=== PATIENT | female | born 1985 | race Caucasian/White ===

== ENCOUNTER 2017-04-10 17:54 | Emergency (ER) | payer MEDICAID ==
[~2017-04-10] VITALS: Ht 152.4 cm; Wt 59.0 kg
[~2017-04-10 17:54] MED LIST: IBUPROFEN 600M600 MG PO; TYLENOL ES500 M1 PO; ULTRAM50 MG PO
--- NOTE | 2017-04-10 18:25 | Emergency Room Report ---
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 N Clinical Suspician of Infection? N Mental Status: 1 - Regular (Normal Baseline) Sepsis Risk:Low Sepsis Risk Have you (or family members/close friends) recently traveled outside the [place]? N If Yes, where/when: Have you had exposure to infectious disease within the past month? TB? Other? Specify: Source patient, RN notes reviewed, RN/MD Exam Limitations no limitations Comment This is a 29-year-old female patient arriving to the emergency room complaining with constipation for the past one month. Patient was placed on Suboxone approximately 2 months ago. Patient denies any fever, nausea, vomiting but has been having some recent cramps. She appears in no acute distress. ALLERGIES Coded Allergies: No Known Allergies (04/10/17) Home Medications Reported Medications BUPRENORPHINE HCL/NALOXONE HCL (Buprenorphin-Naloxon 8-2 MG Sl) 1 TAB SL DAILY #14 BUPRENORPHINE HCL/NALOXONE HCL (Zubsolv 5.7-1.4 MG Tablet Sl) 1 TAB SL DAILY #14 History Medical History General Angina: No [place]: No Hypertension? No Hyperlipidemia? No CHF? No COPD? No Asthma? No Hernia? No CVA? No Seizures? No Diabetes? No UTI? No Stones? No GB Disease: No Hepatitis? No Cataracts? No Glaucoma? No MRSA? No TB? No Cancer? 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 Hx LMP N/A Family History Family Hx Diabetes Yes CAD No Hypertension Yes Hyperlipidemia Yes Cancer Yes TB No Social History Smoking Hx Smoker: Current Every Day Smoker Tobacco: Yes Type Cigarettes Packs/day < 1 Pack Alcohol Alcohol: No Review of Systems All Other Systems Reviewed and Negative Gastrointestinal see HPI, denies abdominal pain, constipation, denies diarrhea, denies nausea, denies vomiting Physical Exam Vital Signs Vital Signs Date Time Temp Pulse Resp B/P Pulse O2 O2 Flow FiO2 Ox Delivery Rate 04/10 1959 98.3 94 16 109/72 99 04/10 1937 94 16 109/72 99 04/10 1757 98.3 70 16 149/72 99 General Appearance normal appearance, WD/WN, no apparent distress Respiratory Status Yes: trachea midline, chest symmetrical, non tender chest. No: respiratory distress. Lung Sounds bilateral: normal breath sounds, lungs clear. 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 No Comment 1944-patient re-examined, she appears in no acute distress, medically stable. She had a bowel movement after using the Fleet enema in the emergency room. We' ll discharge her home with instructions to increase her fiber intake, use of occasional prune juice, and will add stool softeners to her medications as well. Results/Orders Laboratory Tests 04/10/171828: Urine Color YELLOW, Urine Appearance CLOUDY, Urine pH 8.0, Ur Specific [place] 1.020, Urine Protein NEGATIVE, Urine Ketones NEGATIVE, Urine Blood NEGATIVE, Urine Nitrate NEGATIVE, Urine Bilirubin NEGATIVE, Urine Urobilinogen 0.2, Ur Leukocyte Esterase 1+ H, Urine RBC NONE, Urine WBC 10-20, Ur Squamous Epith Cells OCC, Urine Bacteria 4+, Urine Glucose NEGATIVE Current Medication Orders Sig/Zaira Start time Last Medication Dose Route Stop Time Status Admin Sodium Biphosphate/ 0 .STK-MED ONE 04/10 1956 DC Sodium Phosphate [place] Sodium Biphosphate/ 133 ML ONCE ONE 04/10 1945 DC 04/10 Sodium Phosphate [place] 04/10 Bisacodyl 0 .STK-MED ONE 04/10 1905 DC PO Sodium Biphosphate/ 0 .STK-MED ONE 04/10 1904 DC Sodium Phosphate [place] Bisacodyl 10 MG ONCE ONE 04/10 1900 DC 04/10 PO 04/10 Sodium Biphosphate/ 133 ML ONCE ONE 04/100 DC 04/10 Sodium Phosphate [place] 04/10 Orders Procedure Date/time Status URINALYSIS/COMPLETE 04/10 183 Complete CULTURE, URINE 04/10 182 Active URINE 04/10 180 Complete XRAY/CT/US XRAY/CT/US XRAY KUB XR interpretation by reviewed by me, discussed w/radiologist Xray Results increased stool consistent with constipation, otherwise no acute disease Departure Departure Time of Disposition 1939 Disposition DC Home or Self Care(routine) Clinical Impression Primary Impression: Constipation Qualifiers: Constipation type: unspecified constipation type Qualified Code: K59.00 - Constipation, unspecified Condition STABLE Patient Instructions DI for Constipation Additional Instructions Please drink plenty of fluids, increase your fiber content Interior diet, start stool softeners, may use occasional prune juice, follow-up with PCP if not better. Discharge Counseling Counseled pt/family regarding diagnosis, test results, medications/RX, home care, follow up needs Comment Please drink plenty of fluids, increase your fiber content Interior diet, start stool softeners, may use occasional prune juice, follow-up with PCP if not better. Prescriptions Current Visit Scripts Docusate Sodium (Colace 100MG CAP) 100 MG PO BID #30 CAP ED Critical Care Critical Care No at 0941
--- NOTE | 2017-04-10 18:25 | Emergency Room Report ---
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 N Clinical Suspician of Infection? N Mental Status: 1 - Regular (Normal Baseline) Sepsis Risk:Low Sepsis Risk Have you (or family members/close friends) recently traveled outside the [place]? N If Yes, where/when: Have you had exposure to infectious disease within the past month? TB? Other? Specify: Source patient, RN notes reviewed, RN/MD Exam Limitations no limitations Comment This is a 29-year-old female patient arriving to the emergency room complaining with constipation for the past one month. Patient was placed on Suboxone approximately 2 months ago. Patient denies any fever, nausea, vomiting but has been having some recent cramps. She appears in no acute distress. ALLERGIES Coded Allergies: No Known Allergies (04/10/17) Home Medications Reported Medications BUPRENORPHINE HCL/NALOXONE HCL (Buprenorphin-Naloxon 8-2 MG Sl) 1 TAB SL DAILY #14 BUPRENORPHINE HCL/NALOXONE HCL (Zubsolv 5.7-1.4 MG Tablet Sl) 1 TAB SL DAILY #14 History Medical History General Angina: No CT: No Hypertension? No Hyperlipidemia? No CHF? No COPD? No Asthma? No Hernia? No CVA? No Seizures? No Diabetes? No UTI? No Stones? No GB Disease: No Hepatitis? No Cataracts? No Glaucoma? No MRSA? No TB? No Cancer? 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 Hx LMP N/A Family History Family Hx Diabetes Yes CAD No Hypertension Yes Hyperlipidemia Yes Cancer Yes TB No Social History Smoking Hx Smoker: Current Every Day Smoker Tobacco: Yes Type Cigarettes Packs/day < 1 Pack Alcohol Alcohol: No Review of Systems All Other Systems Reviewed and Negative Gastrointestinal see HPI, denies abdominal pain, constipation, denies diarrhea, denies nausea, denies vomiting Physical Exam Vital Signs Vital Signs Date Time Temp Pulse Resp B/P Pulse O2 O2 Flow FiO2 Ox Delivery Rate 04/10 1959 98.3 94 16 109/72 99 04/10 1937 94 16 109/72 99 04/10 1757 98.3 70 16 149/72 99 General Appearance normal appearance, WD/WN, no apparent distress Respiratory Status Yes: trachea midline, chest symmetrical, non tender chest. No: respiratory distress. Lung Sounds bilateral: normal breath sounds, lungs clear. 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 No Comment 1944-patient re-examined, she appears in no acute distress, medically stable. She had a bowel movement after using the Fleet enema in the emergency room. We' ll discharge her home with instructions to increase her fiber intake, use of occasional prune juice, and will add stool softeners to her medications as well. Results/Orders Laboratory Tests 04/10/171828: Urine Color YELLOW, Urine Appearance CLOUDY, Urine pH 8.0, Ur Specific [place] 1.020, Urine Protein NEGATIVE, Urine Ketones NEGATIVE, Urine Blood NEGATIVE, Urine Nitrate NEGATIVE, Urine Bilirubin NEGATIVE, Urine Urobilinogen 0.2, Ur Leukocyte Esterase 1+ H, Urine RBC NONE, Urine WBC 10-20, Ur Squamous Epith Cells OCC, Urine Bacteria 4+, Urine Glucose NEGATIVE Current Medication Orders Sig/Zaira Start time Last Medication Dose Route Stop Time Status Admin Sodium Biphosphate/ 0 .STK-MED ONE 04/10 1956 DC Sodium Phosphate [place] Sodium Biphosphate/ 133 ML ONCE ONE 04/10 1945 DC 04/10 Sodium Phosphate [place] 04/10 Bisacodyl 0 .STK-MED ONE 04/10 1905 DC PO Sodium Biphosphate/ 0 .STK-MED ONE 04/10 1904 DC Sodium Phosphate [place] Bisacodyl 10 MG ONCE ONE 04/10 1900 DC 04/10 PO 04/10 Sodium Biphosphate/ 133 ML ONCE ONE 04/100 DC 04/10 Sodium Phosphate AR 04/10 Orders Procedure Date/time Status URINALYSIS/COMPLETE 04/10 183 Complete CULTURE, URINE 04/10 182 Active URINE 04/10 180 Complete XRAY/CT/US XRAY/CT/US XRAY KUB XR interpretation by reviewed by me, discussed w/radiologist Xray Results increased stool consistent with constipation, otherwise no acute disease Departure Departure Time of Disposition 1939 Disposition DC Home or Self Care(routine) Clinical Impression Primary Impression: Constipation Qualifiers: Constipation type: unspecified constipation type Qualified Code: K59.00 - Constipation, unspecified Condition STABLE Patient Instructions DI for Constipation Additional Instructions Please drink plenty of fluids, increase your fiber content Interior diet, start stool softeners, may use occasional prune juice, follow-up with PCP if not better. Discharge Counseling Counseled pt/family regarding diagnosis, test results, medications/RX, home care, follow up needs Comment Please drink plenty of fluids, increase your fiber content Interior diet, start stool softeners, may use occasional prune juice, follow-up with PCP if not better. Prescriptions Current Visit Scripts Docusate Sodium (Colace 100MG CAP) 100 MG PO BID #30 CAP ED Critical Care Critical Care No at 0941
[2017-04-10] MEDS ORDERED: BUPRENORPHINE H1 TA2 SL (18:26)
[2017-04-10] MEDS ORDERED: ZUBSOLV1 TA1 SL (18:26)
--- OUTSIDE RECORDS SUMMARY | 2017-04-10 18:26 | External Medical Summary Rpt | CCD ---
Author Author , LYNN BAILEY Address Unknown Phone [email or web address] Purpose Continuity of Care Document - through 2016 Problems Code Diagnosis DOS Provider Status F11.10 Opioid abuse, uncomplicat ed F11.220 Opioid dependence with intoxicatio n, uncomplicat ed F11.23 Opioid dependence with withdrawal F19.90 Other psychoactiv e substance use, unspecified , uncomplicat ed L02.91 Cutaneous abscess, unspecified L03.114 Cellulitis of left upper limb R76.8 Other specified abnormal immunologic al findings in serum Z00.00 Encounter for general adult medical examination without abnormal findings
--- OUTSIDE RECORDS SUMMARY | 2017-04-10 18:26 | External Medical Summary Rpt | CCD ---
Author Author , LYNN BAILEY Address Unknown Phone [email or web address] Purpose Continuity of Care Document - through [...]
--- OUTSIDE RECORDS SUMMARY | 2017-04-10 18:27 | External Medical Summary Rpt | CCD ---
Author Author [employer] Organization [employer] Address Unknown Phone Unavailable Purpose Continuity of Care Document - through 2016
--- OUTSIDE RECORDS SUMMARY | 2017-04-10 18:27 | External Medical Summary Rpt | CCD ---
Author Author , LYNN BIALEY Address Unknown Phone [email or web address] Immunization Name Date Rout CVX Reac Dose Comm Prov Is Faci e tion ent ider Refu lity Give sed n Hep 03-3 42 999 Hist H149 No H149 B, 0-19 oric adol 99 al Info High rmat Ris ion - Sour ce Unsp ecif ied Hep 10- 42 999 Hist H149 No H149 B, 2-19 oric adol 98 al Info High rmat Ris ion - Sour ce Unsp ecif ied Hep 09- 42 999 Hist H149 No H149 B, 1-19 oric adol 98 al Info High rmat Ris ion - Sour ce Unsp ecif ied MMR 09-1 3 999 Hist H149 No H149 1-19 oric 98 al Info rmat ion - Sour ce Unsp ecif ied
--- OUTSIDE RECORDS SUMMARY | 2017-04-10 18:27 | External Medical Summary Rpt | CCD ---
Author Author , LYNN BAILEY Address Unknown Phone [email or web address] Immunization Name Date Rout CVX Reac Dose [...]
[2017-04-10 18:37] LABS: URINE BILIRUBIN - DIPSTICK NEGATIVE (NEG); URINE BLOOD NEGATIVE (NEG)
[2017-04-10 18:54] LABS: URINE SQUAMOUS CELLS OCC #/hpf (0-5)
[2017-04-10] MEDS ORDERED: COLACE100 MG PO (19:43)
[2017-04-10 19:59] VITALS: BP 109/72
--- NOTE | 2017-04-11 05:39 | RADIOLOGY REPORT PS360 ---
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 No obvious obstruction.. No abnormal calcifications are evident. No obvious renal or ureteral calculi.. No acute bony anomalies evident. There are bilateral tubal ligation clips. IMPRESSION: Negative KUB, no acute finding
== END 2017-04-10 20:00 | disposition home or self-care (01) ==
LOC: ER 17:54
PROVIDERS: Emergency Medicine
DX: K59.00 Constipation, unspecified (principal); F17.210 Nicotine dependence, cigarettes, uncomplicated